=== PATIENT | female | born 1940 | race Caucasian/White ===

== ENCOUNTER → 2018-04-29 11:26 | Outpatient (REF) | payer MEDICARE, OTHER, SELFPAY | LOC: LAB 11:26 | PROVIDERS: PCP Family Medicine; Visit Provider Family Medicine | DX: N39.0 Urinary tract infection, site not specified (principal) | CPT/HCPCS: 87086 ==

== ENCOUNTER → 2018-11-21 14:02 | Outpatient (ROUT) | payer MEDICARE, OTHER, SELFPAY ==
[2018-11-21 14:16] LABS: INR 2.1 (0.9-1.3); Prothrombin Time 24.3 SECONDS (10.1-12.7)
== END ==
PROVIDERS: PCP Family Medicine; Visit Provider Family Medicine
DX: I48.91 Unspecified atrial fibrillation (principal); Z79.01 Long term (current) use of anticoagulants
CPT/HCPCS: 85610

== ENCOUNTER → 2019-01-03 12:14 | Outpatient (CLI) | payer MEDICARE, OTHER, SELFPAY ==
--- NOTE | 2019-01-03 | DI.RAD.S_ITS ---
PROCEDURE: XR CHEST 2V INDICATIONS: SHORTNESS OF BREATH TECHNIQUE: 2 views of the chest were acquired. COMPARISON: None. FINDINGS: Surgical changes and devices: None. Lungs and pleura: Lungs are clear. Lungs are hyperinflated suggesting COPD. No pleural effusions or pneumothorax. Mediastinum: Mediastinal contours are normal. Heart mildly enlarged Bones and chest wall: No suspicious bony abnormalities. Soft tissues appear unremarkable. IMPRESSION: No acute cardiopulmonary disease process. Dictated by: Marlyn Santana MD, PhD on 01/03/2019 at 16:53 Approved by: Marlyn Santana MD, PhD on 01/03/2019 at 16:53
== END ==
PROVIDERS: PCP Family Medicine; Visit Provider Family Medicine
DX: R06.03 Acute respiratory distress (principal); I10 Essential (primary) hypertension; Z87.891 Personal history of nicotine dependence
CPT/HCPCS: 71046

== ENCOUNTER → 2019-01-22 15:19 | Outpatient (CLI) | payer MEDICARE, OTHER, SELFPAY ==
--- NOTE | 2019-01-22 | DI.ECHO.S_ITS ---
[facility]---------+ [facility] +---------+ : : [address] [address] : : : : [phone] : : : : Phone: [phone]+ Echocardiogram Report + + :Name: AGGIE GORMAN Study Date: 01/22/2019 Height: 66 in : :[facility] Weight: 139 lb : : Gender: Female BSA: 1.7 m2 : :: 1940 Age: 78 yrs BP: 130/66 mmHg: :Reason For Study: SOB : :Ordering Physician: : :Juana Combs Performed By: Naomi Camara : :Referring: JUANA COMBS : + + Interpretation Summary The left ventricle is normal in size, wall thickness, and systolic function without any focal wall motion abnormalities. The ejection fraction is estimated to be 60-65%. There has been no significant change since the previous study. The right ventricle is normal in size and function. The right ventricular systolic pressure is estimated to be at least 40 mmHg based on an estimated right atrial pressure of 8 mm Hg. Compared to the prior echo exam, there has been an increase in the severity of pulmonary hypertension. Both atria are severely dilated. There is moderate tricuspid regurgitation. There is mild to moderate mitral regurgitation. Both have no significant change since the previous study. There is no other significant valvular heart disease. The aortic root is normal size. Procedure: A two-dimensional transthoracic echocardiogram with color flow and Doppler was performed. The study quality was technically adequate. Comparison is made with the echocardiogram of 06/04/14. The patient was in atrial fibrillation with heart rates between 63 and 85 bpm during the exam. Left Ventricle: The left ventricle is normal in size, wall thickness, and systolic function without any focal wall motion abnormalities. The ejection fraction is estimated to be 60-65%. There has been no significant change since the previous study. Diastolic function could not be accurately assessed due to atrial fibrillation. Right Ventricle: The right ventricle is normal in size and function. Atria: Both atria are severely dilated. There is no Doppler evidence for an interatrial shunt. Mitral Valve: The mitral valve leaflets appear mildly thickened, but open well. There is mild to moderate mitral regurgitation. There has been no significant change since the previous study. Aortic Valve: The aortic valve is trileaflet. The aortic valve is mildly calcified. The aortic valve opens well. No aortic regurgitation is present. Tricuspid Valve: The tricuspid valve is normal. There is moderate tricuspid regurgitation. The right ventricular systolic pressure is estimated to be at least 40 mmHg based on an estimated right atrial pressure of 8 mm Hg. Compared to the prior echo exam, there has been an increase in the severity of pulmonary hypertension. Pulmonic Valve: The pulmonic valve is not well seen, but is grossly normal. There is trace pulmonic regurgitation. There is no other significant valvular heart disease. Great Vessels: The aortic root is normal size. The ascending aorta is normal in size. The aortic arch is normal in size. The pulmonary is not well visualized. The IVC is of normal diameter and collapses less than 50% with a sniff. This suggests a right atrial pressure of 8 mm Hg. Pericardium/ Pleura There is no pericardial effusion. There is no pleural effusion. MMode/2D Measurements & Calculations LVIDd: 4.5 cm LVOT diam: 1.9 cm LVIDs: 2.1 cm Ao root diam: 2.9 cm FS: 52.7 % asc Aorta Diam: 3.3 cm EPSS: 0.60 cm Ao Arch Diam (Prox Trans): 2.3 cm IVSd: 0.74 cm LVPWd: 0.96 cm LV crocker. diameter/BSA (cm/m^2): 2.6 LV sys. diameter/BSA (cm/m^2): 1.3 LA A2 area: 37.8 cm2 RA long axis: 6.3 cm LA A4 area: 36.7 cm2 RA area: 26.6 cm2 LA length (vol): 7.1 cm RA vol: 95.3 ml LA vol: 165.1 ml RA : 55.6 ml/m2 LA vol index: 96.3 ml/m2 IVC diam: 2.0 cm RVD1 (basal): 4.1 cm RVD2 (mid): 3.5 cm TAPSE: 1.6 cm Doppler Measurements & Calculations Ao V2 max: 149.2 cm/sec LVOT Max Nemesio: 64.7 cm/sec Ao V2 mean: 97.4 cm/sec LV V1 max P.7 mmHg Ao max P.9 mmHg LV V1 VTI: 13.4 cm Ao mean P.3 mmHg HAELIGH(I,D): 1.3 cm2 Ao V2 VTI: 30.2 cm HALEIGH(V,D): 1.2 cm2 sev ratio: 0.44 HALEIGH indexed to BSA (cm^2/m^2): 0.74 MV E max nemesio: 123.2 cm/sec TR max nemesio: 281.9 cm/sec TR max P.8 mmHg PA V2 max: 70.5 cm/sec PA V2 mean: 44.2 cm/sec PA mean P.90 mmHg PA Accel Time: 0.08 sec SV(LVOT): 38.3 ml Reading Physician:05:10 PM
== END ==
PROVIDERS: PCP Family Medicine; Visit Provider Family Medicine
DX: I08.1 Rheumatic disorders of both mitral and tricuspid valves (principal); R06.02 Shortness of breath
CPT/HCPCS: 93306

== ENCOUNTER → 2019-06-11 09:54 | Outpatient (ROUT) | payer MEDICARE, OTHER, SELFPAY ==
[2019-06-11 10:02] LABS: INR 2.3 (0.9-1.3); Prothrombin Time 26.2 SECONDS (10.1-12.7)
== END ==
PROVIDERS: PCP Family Medicine; Visit Provider Family Medicine
DX: Z79.01 Long term (current) use of anticoagulants (principal)
CPT/HCPCS: 85610

== ENCOUNTER → 2019-06-26 09:27 | Outpatient (ROUT) | payer MEDICARE, OTHER, SELFPAY ==
[2019-06-26 09:35] LABS: INR 2.6 (0.9-1.3); Prothrombin Time 29.9 SECONDS (10.1-12.7)
== END ==
PROVIDERS: PCP Family Medicine; Visit Provider Family Medicine
DX: Z79.01 Long term (current) use of anticoagulants (principal)
CPT/HCPCS: 85610

== ENCOUNTER → 2019-09-24 09:40 | Outpatient (ROUT) | payer MEDICARE, OTHER, SELFPAY ==
[2019-09-24 09:45] LABS: INR 2.2 (0.9-1.3); Prothrombin Time 24.5 SECONDS (10.1-12.7)
== END ==
PROVIDERS: PCP Family Medicine; Visit Provider Family Medicine
DX: Z79.01 Long term (current) use of anticoagulants (principal)
CPT/HCPCS: 85610

== ENCOUNTER → 2020-05-22 09:29 | Outpatient (ROUT) | payer MEDICARE, OTHER, SELFPAY ==
[2020-05-22 09:43] LABS: INR 3.2 (0.9-1.3)
== END ==
PROVIDERS: PCP Family Medicine; Visit Provider Family Medicine
DX: I48.91 Unspecified atrial fibrillation (principal); Z79.01 Long term (current) use of anticoagulants
CPT/HCPCS: 85610

== ENCOUNTER → 2020-05-28 11:41 | Outpatient (ROUT) | payer MEDICARE, OTHER, SELFPAY ==
[2020-05-28 11:48] LABS: INR 2.8 (0.9-1.3); Prothrombin Time 32.3 SECONDS (10.1-12.7)
== END ==
PROVIDERS: PCP Family Medicine; Visit Provider Family Medicine
DX: I48.91 Unspecified atrial fibrillation (principal); Z79.01 Long term (current) use of anticoagulants
CPT/HCPCS: 85610

== ENCOUNTER → 2020-06-04 15:33 | Outpatient (ROUT) | payer MEDICARE, OTHER, SELFPAY ==
[2020-06-04 17:36] LABS: INR 2.1 (0.9-1.3); Prothrombin Time 23.8 SECONDS (10.1-12.7)
== END ==
PROVIDERS: PCP Family Medicine; Visit Provider Family Medicine
DX: I48.91 Unspecified atrial fibrillation (principal); Z79.01 Long term (current) use of anticoagulants
CPT/HCPCS: 85610

== ENCOUNTER → 2020-06-09 09:15 | Outpatient (ROUT) | payer MEDICARE, OTHER, SELFPAY ==
[2020-06-09 09:27] LABS: INR 2.3 (0.9-1.3); Prothrombin Time 26.1 SECONDS (10.1-12.7)
== END ==
PROVIDERS: PCP Family Medicine; Visit Provider Family Medicine
DX: Z79.01 Long term (current) use of anticoagulants (principal)
CPT/HCPCS: 85610

== ENCOUNTER → 2020-06-25 09:42 | Outpatient (ROUT) | payer MEDICARE, OTHER, SELFPAY ==
[2020-06-25 09:56] LABS: INR 2.1 (0.9-1.3); Prothrombin Time 24.5 SECONDS (10.1-12.7)
== END ==
PROVIDERS: PCP Family Medicine; Visit Provider Family Medicine
DX: Z79.01 Long term (current) use of anticoagulants (principal)
CPT/HCPCS: 85610

== ENCOUNTER → 2020-08-05 11:09 | Outpatient (ROUT) | payer MEDICARE, OTHER, SELFPAY ==
[2020-08-05 11:15] LABS: INR 1.9 (0.9-1.3); Prothrombin Time 21.8 SECONDS (10.1-12.7)
== END ==
PROVIDERS: PCP Family Medicine; Visit Provider Family Medicine
DX: Z79.01 Long term (current) use of anticoagulants (principal)
CPT/HCPCS: 85610

== ENCOUNTER → 2020-08-12 09:06 | Outpatient (CLI) | payer MEDICARE, OTHER, SELFPAY ==
--- NOTE | 2020-08-12 | DI.MRI.S_ITS ---
PROCEDURE: MR HEAD/BRAIN WO CON INDICATIONS: MEMORY CHANGES TECHNIQUE: Non-contrast axial T1 spin echo, axial T2 fast spin echo, sagittal and axial FLAIR, coronal T2 fast spin echo, axial gradient echo, axial diffusion and ADC through the brain. COMPARISON: None. FINDINGS: Image quality: Excellent. CSF spaces: Ventricles appear symmetric in size and shape. Basal cisterns are patent. No extra-axial fluid collections. Brain: No intracranial bleeds or mass effects. There is advanced cerebral volume loss for age. There are advanced periventricular and deep white matter chronic small vessel ischemic changes. Brainstem appears normal. Diffusion-weighted images show no acute ischemic insults. No chronic ischemic insults. Normal intravascular flow voids are present. Skull and face: Calvarial bone marrow is normal in signal. Orbits are normal. Sinuses: Sinuses and mastoids are clear. IMPRESSION: No acute intracranial finding. Global cerebral volume loss without regional or lobar predilection to indicate a specific neuro-degenerative diagnosis. Severe chronic microvascular ischemic changes. Dictated by: Luis F Boone M.D. on 08/12/2020 at 10:05 Approved by: Luis F Boone M.D. on 08/12/2020 at 10:08
== END ==
PROVIDERS: PCP Family Medicine; Referring Provider Family Medicine; Visit Provider Family Medicine
DX: R41.89 Other symptoms and signs involving cognitive functions and awareness (principal); I99.9 Unspecified disorder of circulatory system
CPT/HCPCS: 70551

== ENCOUNTER → 2020-08-29 10:30 | Outpatient (CLI) | payer MEDICARE, OTHER, SELFPAY ==
--- NOTE | 2020-08-29 | DI.MG.S_ITS ---
BILATERAL DIGITAL SCREENING MAMMOGRAM 3D/2D WITH CAD: 08/29/2020 CLINICAL: Routine screening. Family history of breast cancer. Comparison is made to exams dated: 07/22/2017 mammogram, 07/15/2016 mammogram, and 09/29/2012 mammogram - [facility]. There are scattered fibroglandular elements in both breasts. Current study was also evaluated with a Computer Aided Detection (CAD) system. There are benign vascular calcifications in both breasts. No significant masses, calcifications, or other findings are seen in either breast. There has been no significant interval change. IMPRESSION: BENIGN There is no mammographic evidence of malignancy. A 1 year screening mammogram is recommended. This exam was interpreted at Station ID: [id number]. NOTE: For mammograms, a report in lay terms will be sent to the patient. Approximately 15% of breast malignancies will not be visualized mammographically. In the management of a palpable breast mass, a negative mammogram must not discourage biopsy of a clinically suspicious lesion. Electronically Signed By: Maira tadeo/joseph:08/29/2020 12:40:15 letter sent: Normal Exam ACR BI-RADS Category 2: Benign Finding(s) 3342F
[2020-08-29 11:48] LABS: INR 2.2 (0.9-1.3); Prothrombin Time 24.7 SECONDS (10.1-12.7)
== END ==
PROVIDERS: PCP Family Medicine; Referring Provider Family Medicine; Visit Provider Family Medicine
DX: Z12.31 Encounter for screening mammogram for malignant neoplasm of breast (principal); Z80.3 Family history of malignant neoplasm of breast; I48.91 Unspecified atrial fibrillation; Z79.01 Long term (current) use of anticoagulants
CPT/HCPCS: 77063; 77067; 85610

== ENCOUNTER → 2020-10-13 08:40 | Outpatient (ROUT) | payer MEDICARE, OTHER, SELFPAY ==
[2020-10-13 08:49] LABS: INR 1.8 (0.9-1.3); Prothrombin Time 20.6 SECONDS (10.1-12.7)
== END ==
PROVIDERS: PCP Family Medicine; Visit Provider Family Medicine
DX: I48.91 Unspecified atrial fibrillation (principal)
CPT/HCPCS: 85610

== ENCOUNTER → 2020-12-05 14:43 | Outpatient (ROUT) | payer MEDICARE, OTHER, SELFPAY ==
[2020-12-05 14:59] LABS: INR 2.4 (0.9-1.3); Prothrombin Time 27.5 SECONDS (10.1-12.7)
== END ==
PROVIDERS: PCP Family Medicine; Visit Provider Family Medicine
DX: Z79.01 Long term (current) use of anticoagulants (principal)
CPT/HCPCS: 85610

== ENCOUNTER → 2020-12-30 13:40 | Outpatient (ROUT) | payer MEDICARE, OTHER, SELFPAY ==
[2020-12-30 13:53] LABS: INR 1.3 (0.9-1.3); Prothrombin Time 14.9 SECONDS (10.1-12.7)
== END ==
PROVIDERS: PCP Family Medicine; Visit Provider Family Medicine
DX: Z79.01 Long term (current) use of anticoagulants (principal)
CPT/HCPCS: 85610

== ENCOUNTER → 2021-01-06 13:46 | Outpatient (ROUT) | payer MEDICARE, OTHER, SELFPAY ==
[2021-01-06 13:58] LABS: INR 1.8 (0.9-1.3); Prothrombin Time 20.5 SECONDS (10.1-12.7)
== END ==
PROVIDERS: PCP Family Medicine; Visit Provider Family Medicine
DX: Z79.01 Long term (current) use of anticoagulants (principal)
CPT/HCPCS: 85610

== ENCOUNTER → 2021-02-02 11:53 | Outpatient (ROUT) | payer MEDICARE, OTHER, SELFPAY ==
[2021-02-02 12:37] LABS: INR 2.2 (0.9-1.3); Prothrombin Time 25.7 SECONDS (10.1-12.7)
== END ==
PROVIDERS: PCP Family Medicine; Visit Provider Family Medicine
DX: I48.91 Unspecified atrial fibrillation (principal); Z79.01 Long term (current) use of anticoagulants
CPT/HCPCS: 85610

== ENCOUNTER → 2021-02-11 10:32 | Outpatient (ROUT) | payer MEDICARE, OTHER, SELFPAY ==
[2021-02-11 11:00] LABS: INR 1.7 (0.9-1.3); Prothrombin Time 19.3 SECONDS (10.1-12.7)
== END ==
PROVIDERS: PCP Family Medicine; Visit Provider Family Medicine
DX: I48.91 Unspecified atrial fibrillation (principal); Z79.01 Long term (current) use of anticoagulants
CPT/HCPCS: 85610

== ENCOUNTER → 2021-02-19 14:06 | Outpatient (ROUT) | payer MEDICARE, OTHER, SELFPAY ==
[2021-02-19 14:19] LABS: INR 2.7 (0.9-1.3); Prothrombin Time 31.3 SECONDS (10.1-12.7)
== END ==
PROVIDERS: PCP Family Medicine; Visit Provider Family Medicine
DX: Z79.01 Long term (current) use of anticoagulants (principal)
CPT/HCPCS: 85610

== ENCOUNTER → 2021-03-24 10:24 | Outpatient (ROUT) | payer MEDICARE, OTHER, SELFPAY ==
[2021-03-24 10:31] LABS: INR 2.8 (0.9-1.3); Prothrombin Time 33.2 SECONDS (10.1-12.7)
== END ==
PROVIDERS: PCP Family Medicine; Visit Provider Family Medicine
DX: Z79.01 Long term (current) use of anticoagulants (principal)
CPT/HCPCS: 85610

== ENCOUNTER → 2021-04-13 14:18 | Outpatient (ROUT) | payer MEDICARE, OTHER, SELFPAY ==
[2021-04-13 14:52] LABS: Prothrombin Time 22.3 SECONDS (10.1-12.7)
== END ==
PROVIDERS: PCP Family Medicine; Visit Provider Family Medicine
DX: Z79.01 Long term (current) use of anticoagulants (principal)
CPT/HCPCS: 85610

== ENCOUNTER → 2021-05-12 10:34 | Outpatient (ROUT) | payer MEDICARE, OTHER, SELFPAY ==
[2021-05-12 10:50] LABS: INR 2.2 (0.9-1.3)
== END ==
PROVIDERS: PCP Family Medicine; Visit Provider Family Medicine
DX: I48.91 Unspecified atrial fibrillation (principal); Z79.01 Long term (current) use of anticoagulants
CPT/HCPCS: 85610

== ENCOUNTER → 2021-06-23 09:42 | Outpatient (ROUT) | payer MEDICARE, OTHER, SELFPAY ==
[2021-06-23 09:59] LABS: INR 2.5 (0.9-1.3); Prothrombin Time 29.5 SECONDS (10.1-12.7)
== END ==
PROVIDERS: PCP Family Medicine; Visit Provider Family Medicine
DX: I48.91 Unspecified atrial fibrillation (principal); Z79.01 Long term (current) use of anticoagulants
CPT/HCPCS: 85610

== ENCOUNTER → 2021-07-27 13:03 | Outpatient (ROUT) | payer MEDICARE, OTHER, SELFPAY ==
[2021-07-27 13:11] LABS: INR 1.6 (0.9-1.3); Prothrombin Time 17.8 SECONDS (10.1-12.7)
== END ==
PROVIDERS: PCP Family Medicine; Visit Provider Family Medicine
DX: I48.91 Unspecified atrial fibrillation (principal); Z79.01 Long term (current) use of anticoagulants
CPT/HCPCS: 85610

== ENCOUNTER → 2021-08-14 15:14 | Outpatient (ROUT) | payer MEDICARE, OTHER, SELFPAY ==
[2021-08-14 15:22] LABS: INR 1.5 (0.9-1.3); Prothrombin Time 17.4 SECONDS (10.1-12.7)
== END ==
PROVIDERS: PCP Family Medicine; Visit Provider Family Medicine
DX: I48.91 Unspecified atrial fibrillation (principal); Z79.01 Long term (current) use of anticoagulants
CPT/HCPCS: 85610

== ENCOUNTER → 2021-08-28 14:52 | Outpatient (ROUT) | payer MEDICARE, OTHER, SELFPAY ==
[2021-08-28 15:07] LABS: INR 2.9 (0.9-1.3); Prothrombin Time 34.2 SECONDS (10.1-12.7)
== END ==
PROVIDERS: PCP Family Medicine; Visit Provider Family Medicine
DX: I48.91 Unspecified atrial fibrillation (principal); Z79.01 Long term (current) use of anticoagulants
CPT/HCPCS: 85610

== ENCOUNTER → 2021-08-31 11:26 | Outpatient (CLI) | payer MEDICARE, OTHER, SELFPAY ==
--- NOTE | 2021-08-31 | DI.MG.S_ITS ---
BILATERAL DIGITAL SCREENING MAMMOGRAM 3D/2D WITH CAD: 08/31/2021 CLINICAL: Routine screening. Comparison is made to exams dated: 08/29/2020 mammogram, 07/22/2017 mammogram, and 07/15/2016 mammogram - [facility]. There are scattered fibroglandular elements in both breasts. Current study was also evaluated with a Computer Aided Detection (CAD) system. There are benign vascular calcifications in both breasts. No significant masses, calcifications, or other findings are seen in either breast. There has been no significant interval change. IMPRESSION: BENIGN There is no mammographic evidence of malignancy. A 1 year screening mammogram is recommended. This exam was interpreted at Station ID: [id number]. NOTE: For mammograms, a report in lay terms will be sent to the patient. Approximately 15% of breast malignancies will not be visualized mammographically. In the management of a palpable breast mass, a negative mammogram must not discourage biopsy of a clinically suspicious lesion. Electronically Signed By: Scott prabhakar/joseph:08/31/2021 12:30:24 letter sent: Normal Exam ACR BI-RADS Category 2: Benign Finding(s) 3342F
== END ==
PROVIDERS: PCP Family Medicine; Referring Provider Family Medicine; Visit Provider Family Medicine
DX: Z12.31 Encounter for screening mammogram for malignant neoplasm of breast (principal)
CPT/HCPCS: 77063; 77067

== ENCOUNTER → 2021-09-18 11:58 | Outpatient (ROUT) | payer MEDICARE, OTHER, SELFPAY ==
[2021-09-18 12:36] LABS: INR 2.1 (0.9-1.3); Prothrombin Time 23.3 SECONDS (10.1-12.7)
== END ==
PROVIDERS: PCP Family Medicine; Visit Provider Family Medicine
DX: I48.91 Unspecified atrial fibrillation (principal); Z79.01 Long term (current) use of anticoagulants
CPT/HCPCS: 85610

== ENCOUNTER → 2021-10-13 10:14 | Outpatient (ROUT) | payer MEDICARE, OTHER, SELFPAY ==
[2021-10-13 10:31] LABS: INR 1.5 (0.9-1.3); Prothrombin Time 17.1 SECONDS (10.1-12.7)
[2021-10-13 10:37] LABS: Hemoglobin A1C% w Est Avg Glu 6.1 % (4.0-6.0)
[2021-10-13 10:40] LABS: Alanine Aminotransferase 29 IU/L (<35); Albumin 4.3 g/dL (3.5-5.0); Albumin Globulin Ratio 1.4 (1.0-2.8); Alkaline Phosphatase 89 U/L (38-126); Aspartate Aminotransferase 40 IU/L (14-36); BUN Creatinine Ratio 36.8 (6-22); Bilirubin Total 0.8 mg/dL (0.2-1.3); Blood Urea Nitrogen 21 mg/dL (7-17); Calcium 9.8 mg/dL (8.4-10.2); Carbon Dioxide 33 mmol/L (22-32); Chloride 101 mmol/L (98-107); Cholesterol 136 mg/dL (140-199); Estimated Glomerular Filt Rate > 60 mL/min (>60); Globulin 3.1 g/dL (1.7-4.1); Glucose 107 mg/dL (80-110); HDL Cholesterol 61 mg/dL (40-60); HEMOLYSIS < 15 (0-50); LDL Cholesterol Calculated 58 mg/dL (<100); Potassium 4.1 mmol/L (3.4-5.1); Sodium 139 mmol/L (137-145); Total Protein 7.4 g/dL (6.3-8.2); Triglycerides 85 mg/dL (35-150)
[2021-10-13 10:53] LABS: LDL Cholesterol Direct 59 mg/dL (<100)
== END ==
PROVIDERS: PCP Family Medicine; Visit Provider Family Medicine
DX: I48.91 Unspecified atrial fibrillation (principal); Z79.01 Long term (current) use of anticoagulants; R73.9 Hyperglycemia, unspecified; E78.5 Hyperlipidemia, unspecified; I10 Essential (primary) hypertension
CPT/HCPCS: 80053; 80061; 83036; 83721; 85610

== ENCOUNTER → 2021-10-28 14:08 | Outpatient (ROUT) | payer MEDICARE, OTHER, SELFPAY ==
[2021-10-28 14:15] LABS: INR 2.1 (0.9-1.3); Prothrombin Time 24.3 SECONDS (10.1-12.7)
== END ==
PROVIDERS: PCP Family Medicine; Visit Provider Family Medicine
DX: I48.91 Unspecified atrial fibrillation (principal); Z79.01 Long term (current) use of anticoagulants
CPT/HCPCS: 85610

== ENCOUNTER → 2022-01-13 08:21 | Outpatient (ROUT) | payer MEDICARE, OTHER, SELFPAY ==
[2022-01-13 08:37] LABS: INR 3.3 (0.9-1.3)
== END ==
PROVIDERS: PCP Family Medicine; Visit Provider Family Medicine
DX: I48.91 Unspecified atrial fibrillation (principal); Z79.01 Long term (current) use of anticoagulants
CPT/HCPCS: 85610

== ENCOUNTER → 2022-01-20 10:00 | Outpatient (ROUT) | payer MEDICARE, OTHER, SELFPAY ==
[2022-01-20 10:06] LABS: INR 2.9 (0.9-1.3); Prothrombin Time 33.1 SECONDS (10.1-12.7)
== END ==
PROVIDERS: PCP Family Medicine; Visit Provider Family Medicine
DX: Z79.01 Long term (current) use of anticoagulants (principal); I48.91 Unspecified atrial fibrillation
CPT/HCPCS: 85610

== ENCOUNTER → 2022-02-02 14:33 | Outpatient (CLI) | payer MEDICARE, OTHER, SELFPAY | PROVIDERS: PCP Family Medicine; Referring Provider Family Medicine; Visit Provider Family Medicine | DX: Z78.0 Asymptomatic menopausal state (principal); Z13.820 Encounter for screening for osteoporosis; M85.851 Other specified disorders of bone density and structure, right thigh; M85.852 Other specified disorders of bone density and structure, left thigh; Z90.710 Acquired absence of both cervix and uterus; Z79.890 Hormone replacement therapy | CPT/HCPCS: 77080 ==

== ENCOUNTER → 2022-02-25 11:49 | Outpatient (ROUT) | payer MEDICARE, OTHER, SELFPAY ==
[2022-02-25 12:10] LABS: INR 2.4 (0.9-1.3); Prothrombin Time 28.1 SECONDS (10.1-12.7)
== END ==
PROVIDERS: PCP Family Medicine; Visit Provider Family Medicine
DX: I48.91 Unspecified atrial fibrillation (principal); Z79.01 Long term (current) use of anticoagulants
CPT/HCPCS: 85610

== ENCOUNTER → 2023-02-14 14:41 | Outpatient (CLI) | payer MEDICARE, OTHER, SELFPAY ==
--- NOTE | 2023-02-14 | DI.ECHO.S_ITS ---
[facility]---------+ [facility] +---------+ : : [address] [address] : : : : [phone] : : : : Phone: [phone]+ Echocardiogram Report + + :Name: AGGIE GORMAN Study Date: 02/14/2023 Height: 66 in : :[facility]: Weight: 130 lb : : Gender: Female BSA: 1.7 m2 : :: 1940 Age: 82 yrs BP: 132/80 mmHg: :Reason For Study: Mitral Valve Insufficiency : :Ordering Physician: LYNNETTE, : :CRYSTAL Performed By: Yanna Ren : :Referring: CRYSTAL CHURCH : + + Interpretation Summary The ejection fraction is estimated to be 60-65%. There are no obvious focal wall motion abnormalities noted but poor endocardial definition reduces the sensitivity for the detection of such. The left atrium is severely dilated. The right atrium is moderate to severely dilated. A patent foramen ovale is suspected. There is mild to moderate mitral regurgitation. There is mild aortic stenosis. There is moderate to severe tricuspid regurgitation. The right ventricular systolic pressure is estimated to be at least 38 mmHg based on an estimated right atrial pressure of 8 mm Hg. Procedure: A two-dimensional transthoracic echocardiogram with color flow and Doppler was performed. The study quality was technically adequate. Comparison is made with the echocardiogram of 01/22/2019. The patient was in atrial fibrillation with heart rates between 49-71 bpm during the exam. Left Ventricle: The left ventricle is normal in size. The ejection fraction is estimated to be 60-65%. There are no obvious focal wall motion abnormalities noted but poor endocardial definition reduces the sensitivity for the detection of such. Diastolic function could not be accurately assessed due to atrial fibrillation. Right Ventricle: The right ventricle is normal in size and function. Atria: The left atrium is severely dilated. The right atrium is moderate to severely dilated. A patent foramen ovale is suspected. Mitral Valve: The mitral valve is normal. There is mild mitral annular calcification. There is no mitral valve stenosis. There is mild to moderate mitral regurgitation. Aortic Valve: The aortic valve is not well visualized. The aortic valve is moderately calcified. There is mild aortic stenosis. The peak aortic velocity is 2.18 m/sec. The aortic valve mean gradient is 10 mmHg. No aortic regurgitation is present. Tricuspid Valve: The tricuspid valve is normal. There is no tricuspid stenosis. There is moderate to severe tricuspid regurgitation. The right ventricular systolic pressure is estimated to be at least 38 mmHg based on an estimated right atrial pressure of 8 mm Hg. Compared to the prior echo exam, there has been an increase in TR severity. Pulmonic Valve: The pulmonic valve leaflets are thin and pliable; valve motion is normal. There is no pulmonic valvular stenosis. There is no pulmonic valvular regurgitation. Great Vessels: The aortic root is normal size. The ascending aorta is normal in size. The pulmonary artery is normal size. The IVC is of normal diameter and collapses less than 50% with a sniff. This suggests a right atrial pressure of 8 mm Hg. Pericardium/ Pleura There is no pericardial effusion. There is a moderate left-sided pleural effusion. MMode/2D Measurements & Calculations LVIDd: 4.1 cm LVOT diam: 1.4 cm LVIDs: 3.2 cm Ao root diam: 2.4 cm FS: 22.0 % asc Aorta Diam: 2.4 cm EPSS: 0.50 cm IVSd: 0.80 cm LVPWd: 1.0 cm LV crocker. diameter/BSA (cm/m^2): 2.5 LV sys. diameter/BSA (cm/m^2): 1.9 LA A2 area: 26.6 cm2 RA long axis: 6.6 cm LA A4 area: 26.2 cm2 RA area: 21.8 cm2 LA length (vol): 7.1 cm RA vol: 61.2 ml LA vol: 83.0 ml RA : 36.7 ml/m2 LA vol index: 49.8 ml/m2 RVD1 (basal): 3.3 cm TAPSE_phl: 2.0 cm Doppler Measurements & Calculations Ao V2 max: 205.6 cm/sec LVOT Max Nemesio: 76.0 cm/sec Ao V2 mean: 138.2 cm/sec LV V1 max P.3 mmHg Ao max P.0 mmHg LV V1 VTI: 16.1 cm Ao mean P.0 mmHg HALEIGH(I,D): 0.57 cm2 Ao V2 VTI: 43.7 cm HALEIGH(V,D): 0.57 cm2 sev ratio: 0.37 HALEIGH indexed to BSA (cm^2/m^2): 0.34 TR max nemesio: 270.3 cm/sec SV(LVOT): 24.8 ml TR max P.9 mmHg PA V2 max: 73.9 cm/sec PA V2 mean: 51.8 cm/sec PA mean P.0 mmHg PA pr(Accel): 40.8 mmHg AV VR_phl: 0.37 HALEIGH(VTI)/BSA_phl: 0.34 Reading Physician:04:31 PM
== END ==
PROVIDERS: PCP Family Medicine; Referring Provider Family Medicine; Visit Provider Family Medicine
DX: I34.0 Nonrheumatic mitral (valve) insufficiency (principal); I51.7 Cardiomegaly; I35.0 Nonrheumatic aortic (valve) stenosis
CPT/HCPCS: 93306

== ENCOUNTER → 2025-02-18 12:57 | Outpatient (CLI) | payer MEDICARE, OTHER, SELFPAY ==
[2025-02-18 14:48] LABS: Add Manual Diff / Slide Review NO; Hematocrit 45.1 % (36-46); Hemoglobin 15.1 g/dL (12.0-16.0); Lymphocytes Absolute Auto 1400 /uL (1100-4500); Mean Corpuscular HGB Conc 33.5 % (30-36); Mean Corpuscular Hemoglobin 31.7 PG (26-34); Mean Corpuscular Volume 94.6 fL (80-100); Platelet Count 229 X10^3/uL (150-400)
[2025-02-18 14:56] LABS: Hemoglobin A1C% w Est Avg Glu 5.7 % (4.0-6.0)
[2025-02-18 15:17] LABS: Alanine Aminotransferase 18 IU/L (<35); Albumin 4.7 g/dL (3.5-5.0); Albumin Globulin Ratio 1.4 (1.0-2.8); Alkaline Phosphatase 76 U/L (38-126); Blood Urea Nitrogen 23 mg/dL (7-17); Calcium 10.9 mg/dL (8.4-10.2); Carbon Dioxide 31 mmol/L (22-32); Chloride 99 mmol/L (98-107); Cholesterol 182 mg/dL (140-199); Estimated Glomerular Filt Rate > 60 mL/min (>60); Globulin 3.4 g/dL (1.7-4.1); Glucose 84 mg/dL (70-99); HDL Cholesterol 72 mg/dL (40-60); HEMOLYSIS < 15 (0-50); Potassium 5.1 mmol/L (3.4-5.1); Sodium 139 mmol/L (137-145); Total Protein 8.1 g/dL (6.3-8.2); Triglycerides 133 mg/dL (35-150)
== END ==
PROVIDERS: PCP Family Medicine; Referring Provider Family Medicine; Visit Provider Family Medicine
DX: E78.00 Pure hypercholesterolemia, unspecified (principal); R73.02 Impaired glucose tolerance (oral); I10 Essential (primary) hypertension
CPT/HCPCS: 36415; 80053; 80061; 83036; 85025